=== PATIENT | female | born 1950 ===

== ENCOUNTER 2021-04-03 10:07 | Emergency (ER) | payer MEDICARE, OTHER ==
--- NOTE | 2021-04-03 10:27 | EDM.PDOC ---
ED HPI GENERAL MEDICAL PROBLEM - General Chief Complaint: Lower Extremity Injury/Pain Stated Complaint: L ANKLE INJRED Time Seen by Provider: 04/03/21 10:12 Source of Information: Reports: Patient History Limitations: Reports: No Limitations - History of Present Illness INITIAL COMMENTS - FREE TEXT/NARRATIVE: HISTORY AND PHYSICAL: History of present illness: Patient is a 70-year-old female who presents to the emergency room with complaints of left medial ankle pain post fall. Patient states she slipped on 03/27/2021 resulting in a left lower extremity injury. She was seen in [facility] and told she had a fracture of the left knee/proximal tib-fib. She did go to [facility] and had surgery. Since returning home she believes that her left ankle is fractured as well due to increased pain, bruising and swelling. She does not believe that there was an x-ray obtained of this. She denies any numbness, tingling, saddle paresthesia or weakness. Offers no other extremity concerns. Patient denies any fever, chills, headache, change in vision, syncope or near syncope. Denies any chest pain, back pain, shortness of breath or cough. Denies any GI or symptoms. No recent travel or sick contacts. She is taking oxycodone with good relief. Has been using a wheelchair to "get around". No new injury, trauma or falls. Review of systems: As per history of present illness and below otherwise all systems reviewed and negative. Past medical history: As per history of present illness and as reviewed below otherwise noncontributory. Surgical history: As per history of present illness and as reviewed below otherwise noncontributory. Social history: See social history for further information Family history: As per history of present illness and as reviewed below otherwise noncontributory. Physical exam: General: Well developed and well nourished 70-year-old female. Alert and orientated x 3. Nontoxic in appearance and in no acute distress. Vital signs are stable and have been reviewed by me. Nursing notes were reviewed. HEENT: Atraumatic, normocephalic, pupils equal and reactive bilaterally, negative for conjunctival pallor or scleral icterus, mucous membranes moist, TMs normal bilaterally, throat clear, neck supple, nontender, trachea midline. No drooling or trismus noted. No meningeal signs. No hot potato voice noted. Lungs: Clear to auscultation bilaterally. No wheezes, rales, or rhonchi. Chest nontender. Normal work of breathing, no accessory muscles used. Heart: S1S2, regular rate and rhythm without overt murmur, gallops, or rubs. No JVD. No peripheral edema Abdomen: Soft, nondistended, nontender. Normoactive bowel sounds. Negative for masses or costovertebral tenderness. Skin: Healing bruising noted to the left lower extremity, left medial ankle. She does have dressings over the incision sites from surgery of the left knee and proximal tib-fib. Remaining skin is intact, warm, dry. No lesions or rashes noted. Hematologic: No petechiae or purpra. Mucosa appropriate color and normal nail bed color and refill. Extremities: Recent surgery of the left lower extremity with dressings. Tenderness of the left medial malleolus. See skin for details. She moves all extremities per self without difficulty or deficits, negative for cords or calf pain. Neurovascular unremarkable. Neuro: Awake, alert, oriented. Cranial nerves II through XII unremarkable. Cerebellum unremarkable. Motor and sensory unremarkable throughout. Exam nonfocal. Psychiatric: Mood and affect are appropriate. Normal thought process. Answering questions appropriately. Please note that the patient was seen and evaluated during the 2019 SARS-CoV-2 novel coronavirus pandemic period. Community viral transmission is ongoing at time of this encounter and the emergency department is operating under pandemic response procedures. Medical Decision Making: Patient is a 70-year-old female who presents to the emergency room with complaints of left ankle pain. Patient states she fell on 03/27/2021 and resulted in a knee fracture. She initially was seen in [facility] and ultimately referred to [facility] for surgery. Since the fall she has also had some left ankle pain, believes that an x-ray was never obtained and is concerned that she may have also fractured her ankle. States she noticed bruising and swelling to the left medial ankle which was concerning to her. She has been using a wheelchair to ambulate as she has been informed to be nonweightbearing. No new injury, trauma or falls since March 27. X-ray shows no acute findings. No concern of the surgical sites of the knee. She is using a wheelchair for ambulation, does not require a prescribed DME. She also has oxycodone available to her for pain management. I have talked with the patient about today's findings, in addition to providing specific details for plan of care. Reassessment at the time of disposition demonstrates that the patient is in no acute distress. The patient is stable for discharge, counseling was provided and we discussed in great detail signs and symptoms that would prompt them to return to the Emergency Department. Medication, follow up and supportive care measures were reviewed and discussed. Voices understanding and is agreeable to plan of care. Denies any further questions or concerns at this time. Diagnostics: X-ray Therapeutics: None Prescription: None Impression: Ankle pain, left Plan: 1. You were evaluated today on an emergent basis. Your x-ray of the ankle shows no acute fracture. Continue to follow the orthopedic provider's instructions of being nonweightbearing. Use the wheelchair to ambulate. Rest, ice, elevate the extremity as able. 2. You can alternate Tylenol and ibuprofen as needed for pain and fever management. 3. We encourage you to follow up with your orthopedics for re-evaluation and further care/management. 4. If your symptoms should worsen, new symptoms develop or any of the signs and symptoms we discussed should arise please return to the emergency room or call 911 (if needed). Definitive disposition and diagnosis as appropriate pending reevaluation and review of above. Left ankle Pain Score (Numeric/FACES): 5 - Related Data Allergies Allergy/AdvReac Type Severity Reaction Status Date / Time aspirin Allergy Hives Verified 04/03/21 10:14 codeine Allergy Hives Verified 04/03/21 10:14 Penicillins Allergy Hives Verified 04/03/21 10:14 Home Meds: Home Meds Albuterol [Proventil HFA] PRN 04/03/21 [History] Enoxaparin [Lovenox] 40 mg SUBCUT DAILY 04/03/21 [History] metFORMIN [Glucophage] 04/03/21 [History] oxyCODONE 5 mg PO PRN 04/03/21 [History] Review of Systems - Review of Systems Review Of Systems: Comprehensive ROS is negative, except as noted in HPI. ED EXAM, GENERAL - Physical Exam Exam: See Below Course - Vital Signs Last Recorded V/S: Last Vital Signs Temp 96.9 F 04/03/21 10:19 Pulse 90 04/03/21 10:19 Resp 18 04/03/21 10:19 BP 118/62 04/03/21 10:19 Pulse Ox 96 04/03/21 10:19 Departure - Departure Time of Disposition: 11:35 Disposition: Home, Self-Care 01 Clinical Impression: Ankle pain, left Qualifiers: Chronicity: acute Qualified Code(s): M25.572 - Pain in left ankle and joints of left foot - Discharge Information Instructions: Ankle Pain Referrals: Gopi Roth MD [Primary Care Provider] - Forms: ED Department Discharge Additional Instructions: The following information is given to patients seen in the emergency department who are being discharged to home. This information is to outline your options for follow-up care. We provide all patients seen in our emergency department with a follow-up referral. The need for follow-up, as well as the timing and circumstances, are variable depending upon the specifics of your emergency department visit. If you don't have a primary care physician on staff, we will provide you with a referral. We always advise you to contact your personal physician following an emergency department visit to inform them of the circumstance of the visit and for follow-up with them and/or the need for any referrals to a consulting specialist. The emergency department will also refer you to a specialist when appropriate. This referral assures that you have the opportunity for follow-up care with a specialist. All of these measure are taken in an effort to provide you with o ptimal care, which includes your follow-up. Under all circumstances we always encourage you to contact your private physician who remains a resource for coordinating your care. When calling for follow-up care, please make the office aware that this follow-up is from your recent emergency room visit. If for any reason you are refused follow-up, please contact the [facility] Emergency Department at and asked to speak to the emergency department charge nurse. [facility] [address] [place] [id number] [facility] [address] [place] [address] Thank you for choosing the [facility] emergency department in [place] for your medical needs today. It was a pleasure caring for you. Today you were seen in the emergency department for ankle pain. 1. You were evaluated today on an emergent basis. Your x-ray of the ankle shows no acute fracture. Continue to follow the orthopedic provider's instructions of being nonweightbearing. Use the wheelchair to ambulate. Rest, ice, elevate the extremity as able. 2. You can alternate Tylenol and ibuprofen as needed for pain and fever management. 3. We encourage you to follow up with your orthopedics for re-evaluation and further care/management. 4. If your symptoms should worsen, new symptoms develop or any of the signs and symptoms we discussed should arise please return to the emergency room or call 911 (if needed). Sepsis Event Note (ED) - Focused Exam Vital Signs: Vital Signs Temp Pulse Resp BP Pulse Ox 04/03/21 10:19 96.9 F 90 18 118/62 96
--- NOTE | 2021-04-03 11:24 | CR ---
HISTORY: Fall. Ankle pain. TECHNIQUE: Left ankle 3 views. COMPARISON: None. FINDINGS: No fracture or dislocation. Joint spaces are maintained. Plantar calcaneal enthesophyte. Soft tissue swelling in the lower leg and at the ankle. IMPRESSION: Soft tissue swelling. No acute bone abnormality. Dictated by Kash Ramírez MD @ 04/03/2021 11:23:40 AM (Electronically Signed)
== END 2021-04-03 12:15 | disposition home or self-care (01) ==
LOC: MW.ED 10:07
DX: M25.572 Pain in left ankle and joints of left foot (principal); Z88.5 Allergy status to narcotic agent; Z88.0 Allergy status to penicillin; Z88.8 Allergy status to other drugs, medicaments and biological substances
CPT/HCPCS: 73610-26-LT; 73610-LT; 99283-25